=== PATIENT | male | born 1975 | race Caucasian/White ===

== ENCOUNTER 2021-01-23 13:44 | Emergency (ER) | payer OTHER, SELFPAY ==
[2021-01-23 14:04] VITALS: BP 126/76; PULSE 114; RESP 18; TEMP 37.6; O2SAT 100
--- NOTE | 2021-01-23 15:09 | ED.URI ---
HPI - URI/Sore Throat General Chief Complaint: Upper Respiratory Infection Stated Complaint: Flu sx Time Seen by Provider: 01/23/21 14:41 Source: patient and RN notes reviewed Mode of arrival: ambulatory Limitations: no limitations History of Present Illness HPI Narrative: Patient presents today complaining of an 8-day history of vomiting, fatigue, cough, rhinorrhea, insomnia. He has been taking DayQuil and NyQuil without relief. Denies shortness of breath or chest pain. Patient vapes. He has not been vaccinated against COVID-19. MD elicited complaint: cough Related Data Allergies Allergy/AdvReac Type Severity Reaction Status Date / Time provolone cheese Allergy Intermediate Hives Uncoded 01/23/21 14:46 seafood Allergy Intermediate hives Uncoded 01/23/21 14:46 Review of Systems Review of Systems: CONSTITUTIONAL: Denies body aches, fever, chills, or sweats.+ Fatigue, insomnia EYES: Denies visual changes, redness, or discharge. ENT: Denies congestion, sore throat, or otalgia.+ Rhinorrhea CARDIOVASCULAR: Denies chest pain, palpitations, or edema. RESPIRATORY: Denies dyspnea.+ Cough GASTROINTESTINAL: Denies abdominal pain, nausea, or diarrhea.+ Vomiting GENITOURINARY: Denies dysuria or hematuria. SKIN: Denies rash, itching, or wounds. MUSCULOSKELETAL: Denies back pain, joint pain, or myalgia. NEUROLOGIC: Denies headache, numbness, tingling, or weakness. PSYCH: Denies depression or anxiety. [facility] Past Medical History Medical History (Updated 01/23/21 @ 18:42 by Kristen Parr, [facility], ) Diabetes Exam Narrative: GENERAL: Mildly ill-appearing, well-nourished, and in no acute distress. HEAD: Normocephalic, atraumatic. EYES: EOMI. No redness or drainage. Conjunctivae normal. ENT: Mucous membranes pink and moist. Nares clear. No rhinorrhea. TMs normal bilaterally. Throat mildly erythematous without edema or exudate. Uvula midline. NECK: Normal AROM. Supple. No lymphadenopathy. CHEST: No respiratory distress. Clear to auscultation. HEART: Regular rate and rhythm. No murmur appreciated. Normal peripheral pulses. EXTREMITIES: Normal range of motion. No edema. SKIN: Warm, dry, no rash. Capillary refill normal. Normal skin turgor. NEURO: No focal deficits. Alert and oriented x3. Gait steady. PSYCH: Normal affect. No signs of depression or anxiety. Course Vital Signs Vital signs: Vital Signs Temperature 99.7 F H 01/23/21 14:04 Pulse Rate 114 H 01/23/21 14:04 Respiratory Rate 18 01/23/21 14:04 Blood Pressure 126/76 01/23/21 14:04 Pulse Oximetry 100 01/23/21 14:04 Temperature 99.7 F H 01/23/21 14:04 Pulse Rate 114 H 01/23/21 14:04 Respiratory Rate 18 01/23/21 14:04 Blood Pressure 126/76 01/23/21 14:04 Pulse Oximetry 100 01/23/21 14:04 Reviewed. Pt has been instructed to follow up with his PCP regarding his elevated blood pressure today. MDM - URI/Sore Throat Differential Diagnosis Differential diagnosis: Likely upper respiratory infection, sinusitis, viral infection, bronchitis and other (COVID-19) Lab Data Attestation: I reviewed the patient's lab results. Lab results narrative: Rapid COVID-19 test positive Labs: Lab Results 01/23/21 Range/Units 14:20 POC SARS CoV-2 Ag Positive (Negative) Critical Care Time Critical Care Time Critical Care Time: No Discharge Plan Discharge Clinical Impression: COVID-19 Patient Disposition: Home, Self-Care Condition: Stable Instructions: COVID-19 (Coronavirus Disease 2019) (ED) Additional Instructions: Your COVID-19 test is positive today. You need to quarantine for an additional 6 days. Everyone in your household also needs to be quarantining. Take Mucinex during the day to help keep the congestion in your chest clear. Drink plenty of fluids. Rest. Take Tylenol or ibuprofen for fever or pain. Go to the ER immediately with any chest pain, shortness of breath, or other concerning symptoms. Your bloo
== END 2021-01-23 15:00 | disposition home or self-care (01) ==
PROVIDERS: Emergency Provider Nurse Practitioner
DX: U07.1 COVID-19 (principal); E11.9 Type 2 diabetes mellitus without complications
CPT/HCPCS: 87426; 99203; C9803; G0463

== ENCOUNTER 2024-03-21 15:10 | Emergency (ER) | payer OTHER, SELFPAY ==
--- NOTE | ~2024-03-21 | XR_ITS ---
EXAMINATION: XR knee RT min 4V DATE: 03/21/2024 15:59 INDICATION: Posterior right knee pain. TECHNIQUE: 5 views of right knee were obtained. COMPARISON: None. FINDINGS: Alignment is normal. No fracture. There is mild osteoarthritis of medial and lateral compar tments. No knee joint effusion. IMPRESSION: 1. Mild right knee osteoarthritis. Reviewed, dictated and finalized at location A. RPILLAR TRACTOR OPERATOR
[2024-03-21 15:22] VITALS: BP 132/78; PULSE 87; RESP 16; TEMP 36.3; O2SAT 98
--- NOTE | 2024-03-21 15:45 | ED.LOWEXIN ---
HPI - Extremity Injury (Lower) General Chief Complaint: Extremity Injury, Lower Stated Complaint: right knee injury Time Seen by Provider: 03/21/24 15:30 Source: patient and RN notes reviewed Mode of arrival: ambulatory Limitations: no limitations History of Present Illness HPI Narrative: Patient presents today complaining of right knee pain x4 days. Patient has been cleaning his home and going up and down stairs frequently. He felt a pop in the posterior knee prior to onset of symptoms. He has been wearing a brace since that time taking ibuprofen with some mild relief. 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 Currently rates his pain 05/10. Related Data Allergies Allergy/AdvReac Type Severity Reaction Status Date / Time provolone cheese Allergy Intermediate Hives Uncoded 01/23/21 14:46 seafood Allergy Intermediate hives Uncoded 01/23/21 14:46 Review of Systems Review of Systems: CONSTITUTIONAL: Denies body aches, fever, chills, or sweats. EYES: Denies visual changes, redness, or discharge. ENT: Denies rhinorrhea, congestion, sore throat, or otalgia. CARDIOVASCULAR: Denies chest pain, palpitations, or edema. RESPIRATORY: Denies cough or dyspnea. GASTROINTESTINAL: Denies abdominal pain, nausea, vomiting, or diarrhea. GENITOURINARY: Denies dysuria or hematuria. SKIN: Denies rash, itching, or wounds. MUSCULOSKELETAL: Denies back pain or myalgia.+ right knee pain NEUROLOGIC: Denies headache, numbness, tingling, or weakness. PSYCH: Denies depression or anxiety. [facility] Past Medical History Medical History (Reviewed 03/21/24 @ 15:49 by Kristen Parr, [facility], ) Diabetes Comments At time of signature, I have reviewed and agree with nursing past medical, surgical, social and family history unless otherwise noted. Please see nursing chart for further information. There is no relevant family history pertinent to the presenting complaint Exam Narrative: GENERAL: Well-appearing, well-nourished, and in no acute distress. HEAD: Normocephalic, atraumatic. EYES: EOMI. No redness or drainage. Conjunctivae normal. ENT: Mucous membranes pink and moist. NECK: Normal AROM. CHEST: No respiratory distress. EXTREMITIES: Right knee: Tenderness to the posterior knee. No tenderness to the anterior knee or patella. No edema, ecchymosis, erythema, or effusion noted. Distal sensation intact. Capillary refill normal. Pedal pulse normal. Pain increases with passive internal rotation and flexion. SKIN: Warm, dry, no rash. Capillary refill normal. Normal skin turgor. NEURO: No focal deficits. Alert and oriented x3. Gait steady. PSYCH: Normal affect. No signs of depression or anxiety. Course Course Level of Care: Express Care Visit Vital Signs Vital signs: Vital Signs Temperature 97.3 F L 03/21/24 15:22 Pulse Rate 87 03/21/24 15:22 Respiratory Rate 16 03/21/24 15:22 Blood Pressure 132/78 03/21/24 15:22 Pulse Oximetry 98 03/21/24 15:22 Temperature 97.3 F L 03/21/24 15:22 Pulse Rate 87 03/21/24 15:22 Respiratory Rate 16 03/21/24 15:22 Blood Pressure 132/78 03/21/24 15:22 Pulse Oximetry 98 03/21/24 15:22 Reviewed MDM - Extremity Injury (Lower) MDM Narrative Medical decision making narrative: X-ray shows mild osteoarthritis. Recommend continuing ibuprofen and following up with orthopedics. Patient agrees with plan. Anticipatory guidance given. Differential Diagnosis Differential diagnosis: Likely other (Meniscus injury, ligamentous injury, effusion, osteoarthritis) Imaging Data Radiologist's impression: ITS Impressions Knee X-Ray 03/21/24 16:15 IMPRESSION: 1. Mild right knee osteoarthritis. Critical Care Time Critical Care Time Critical Care Time: No Discharge Plan Discharge Clinical Impression: Knee pain, right Qualifiers: Chronicity: unspecified Qualified Code(s): M25.561 - Pain in right knee Patient Disposition: Home, Self-Care Condition: Stable Instructions: Knee Pain (ED) Additional Instructions: Your knee x-ray showed some mild arthritis, but was otherwise normal. Please elevate and ice your knee. Continue ibuprofen if needed for pain. You may also continue your brace if this is helpful. Please call and schedule a follow-up visit with Orthopedics for further evaluation and treatment. Your blood pressure was elevated above 120/80 today at Urgent Care. This puts you above the threshold for follow up. Please schedule a followup visit with your personal physician as soon as possible, for further evaluation and treatment. Even blood pressure exceeding 120/80 may indicate pre-hypertension. Follow-up/Referrals: PHYSICIAN,CORRECTIVE THERAPIST [Primary Care Provider] - Ruddy York MD [Physician] - Time of Disposition: 16:25
== END 2024-03-21 16:51 | disposition home or self-care (01) ==
PROVIDERS: Emergency Provider Nurse Practitioner
DX: M25.561 Pain in right knee (principal); E11.9 Type 2 diabetes mellitus without complications
CPT/HCPCS: 73564; 99203; G0463

== ENCOUNTER 2025-01-29 17:26 | Emergency (ER) | payer OTHER, SELFPAY ==
--- OUTSIDE RECORDS SUMMARY | 2025-01-29 17:28 | XMS_ITS | Clinical Summary ---
Author Organization [facility] Address [address], [address] [address] Phone Care Team Providers Care Director Imaging Name Role Phone Unavailable Primary Care Provider Unavailabl e Allergies Active Allergy Reactions Criticality Noted Date Comments Shellfish Allergy Unknown Medications METFORMIN HCL PO Take by mouth. Active LISINOPRIL PO Take by mouth. Active LOVASTATIN PO Take by mouth. Active Glimepiride (AMARYL PO) Take by mouth. Active Active Problems Problem Noted Date Diagnosed Date Obesity KEVIN (obstructive sleep apnea) DM (diabetes mellitus) Overview (04/27/2015): Type 2 HTN (hypertension) Immunizations Immunization Administration Dates Next Due Influenza Vaccine 01/30/2012 TD VACCINE 05/01/2004 Social History Tobacco Use Types Packs/Day Years Used Date Smoking Tobacco: Never Assessed Sex and Gender Information Value Date Recorded Sex Assigned at Not on file Legal Sex Male 12:27 AM CDT Gender Identity Not on file Sexual Orientation Not on file Plan of Treatment Health Maintenance Due Date Last Done Comments Diabetes: Foot Exam 1973 Diabetes: Hemoglobin A1c 1973 Hepatitis C Virus (HCV) Screening 1973 TdaP Immunization 1973 Diabetes: Nephropathy Screening 1991 Hepatitis B Immunization (1 of 3 - 19+ 3-dose series) 1992 Pneumococcal Immunization (5 0+ years) (1 of 2 - PCV) 1992 Cologuard 2018 Colonoscopy 2018 Colorectal Cancer Screening 2018 Immunochemical Fecal Occult Blood 2018 Zoster Immunization (1 of 2) 2023 Diabetes: Eye Exam 06/13/2023 06/13/2022, 08/27/2009 Influenza Immunization (#1) 2024 01/30/2012 SARS-COV-2 Immunization ( season) 2024 Respiratory Syncytial Virus (RSV) Immunization (Adult) (1 - 1-dose 75+ series) 2048 DTaP/Tdap/Td Immunization Discontinued 05/01/2004 Human Papillomavirus (HPV) Immunization Aged Out No longer eligible based on patient's age to complete this topic Meningococcal Immunization (ACWY) Aged Out No longer eligible based on patient's age to complete this topic Rotavirus Immunization Aged Out No lo nger eligible based on patient's age to complete this topic Procedures Procedure Name Priority Date/Time Associated Diagnosis Comments DILATED EYE EXAM 06/13/2022 12:00 AM ORDNANCE EQUIPMENT WORKER from Last 3 Months or Most Recently Relevant to Health Maintenance Results * DILATED EYE EXAM (06/13/2022 12:00 AM ORDNANCE EQUIPMENT WORKER) 06/13/2022 us Provider Scan PROCEDURE/MINOR SURGICAL ORDERAB LES Final Result SCAN from Last 3 Months or Most Recently Relevant to Health Maintenance
--- OUTSIDE RECORDS SUMMARY | 2025-01-29 17:28 | XMS_ITS | Clinical Summary ---
Author Organization [facility] Address [address] [place] [address] Care Team Providers Care Monitor And Storage Bin Tender Name Role Phone No, Physician Primary Care Provider [phone] Allergies No known active allergies Medications cetirizine (ZyrTEC) 10 mg tablet Take 1 tablet (10 mg total) by mouth daily Take daily for the next 7 days and then after that as needed for allergies 30 tablet 3 Active EPINEPHrine (EpiPen) 0.3 mg/0.3 mL auto-injection syringeIndicati ons:Anaphylaxis Inject 0.3 mL (0.3 mg total) into the muscle as instructed as needed for anaphylaxis 2 each 3 Active Social History Tobacco Use Types Packs/Day Years Used Date Smoking Tobacco: Never Assessed Personal Safety Answer Date Recorded Have you ever been in or are you currently in a harmful physical or emotional relationship or is someone making you feel afraid or unsafe? 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 Gender Identity Not on file Sexual Orientation Not on file Obstetrics History Last Filed Vital Signs Vital Sign Reading Time Taken Comments Blood Pressure 113/63 09/22/2022 12:45 AM CDT Pulse 82 09/22/2022 12:45 AM CDT Temperature 36.3 C (97.3 F) 09/21/2022 11:06 PM CDT Respiratory Rate 18 09/22/2022 12:45 AM CDT Oxygen Saturation 93% 09/22/2022 12:45 AM CDT Inhaled Oxygen Concentration - - Weight 116.1 kg (256 lb) 09/21/2022 11:06 PM CDT Height 170.2 cm (5' 7) 09/21/2022 11:08 PM CDT Body Mass Index 40.1 09/21/2022 11:06 PM CDT Plan of Treatment Health Maintenance Due Date Last Done Comments Colon Cancer Screening-Colonoscopy 1973 Depression Screening 1973 Hepatitis C Screening 1973 Prostate Cancer Screening-PSA 1973 Hepatitis B Screening 1991 Regular Well Visit/Exam 18-64 1991 DTaP/Tdap/Td Vaccine (1 - Tdap) 05/02/2004 5 Zoster Vaccine (1 of 2) 2023 Influenza Vaccine (#1) 2024 01/30/2012 Pneumococcal vaccine <65 Aged Out No longer eligible based on patient's age to complete this topic Insurance [employer] Care Teams Monitor And Storage Bin Tender Relationship Specialty Start Date End Date No, Physician PCP - General 09/21/22
[2025-01-29 17:31] VITALS: BP 149/85; PULSE 90; RESP 16; TEMP 36.3; O2SAT 100
--- NOTE | 2025-01-29 17:52 | ED.EYEPROB ---
HPI - Eye Problem General Chief complaint: Eye Problems Stated complaint: left eye Time Seen by Provider: 01/29/25 17:40 Source: patient, RN notes reviewed and old records reviewed Mode of arrival: ambulatory Limitations: no limitations History of Present Illness HPI Narrative: 49year old male [facility] accompanied by family member with complaints of mowing yesterday at work and was wearing safety glasses and he felt something go into his left eye. He states that he thought it was some dirt or grass. He reports that he has washed his eye out and continues to have irritation and also some sensitivity to light. Patient reports no change in his vision has had watering of his left eye and redness. Patient admits that he had been rubbing his left eye. MD chief complaint: eye redness and other (photophobia) Onset (ago): day(s) (occurred yesterday at work) Onset description: sudden Location: left eye Place: street/outdoors Severity scale (1-10): 3 Treatments Prior to Arrival: irrigated eye Related Data Allergies Allergy/AdvReac Type Severity Reaction Status Date / Time shellfish derived Allergy Intermediate Hives Verified 01/29/25 17:42 tramadol AdvReac Intermediate Nausea Verified 01/29/25 17:42 Review of Systems Review of Systems: CONSTITUTIONAL: Denies fever, chills, or sweats. EYES: Denies visual changes. Reports redness,, irritation, tearing from left eye, photophobia.grass or dirt in eye yesterday while mowing ENT: Denies rhinorrhea, congestion, sore throat, or otalgia. CARDIOVASCULAR: Denies chest pain, palpitations, or edema. RESPIRATORY: Denies cough or dyspnea. SKIN: Denies rash or itching. NEUROLOGIC: Denies headache All systems reviewed & are unremarkable except as noted in HPI and below PMFSH Past Medical History Medical History (Updated 01/30/25 @ 12:47 by Althea Medley NP) Fracture of left lower leg Diabetes Surgical History Surgical History (Updated 01/30/25 @ 12:35 by Althea Medley NP) History of hernia surgery Social History Social History (Updated 01/30/25 @ 12:36 by Althea Medley NP) Smoking status: Current every day smoker Tobacco type: e-cigarettes/vaping Alcohol intake: current Alcohol use details: social Substance use type: does not use Living arrangements: with family Gender identity (if verbalized by the patient): Male Comments At time of signature, agree with nursing past medical, surgical, social and family history. There is no relevant family history pertinent to the presenting complaint Exam Narrative: GENERAL: Well-appearing, well-nourished, and in no acute distress. HEAD: Normocephalic, atraumatic. EYES: PERRLA and EOMI. Upper and lower eyelids unremarkable. No periorbital cellulitis noted. Sclera and conjunctivae injected left eye with photophobia, possible foreign body in eye yesterday thought grass or dirt, denie any visual changes see procedure note ENT: Nares clear, no rhinorrhea or epistaxis. Mucous membranes moist. NECK: Supple. no lymphadenopathy CHEST: Clear to auscultation. No respiratory distress.SAO2 100% on room air HEART: Regular rate and rhythm. No murmur heard. Normal peripheral pulses. SKIN: Warm, dry, no rash. NEURO: No focal deficits. Alert and oriented x3. Course Course Emergency Course: Patient is aware of diagnosis, understands and agrees to treatment plan. Anticipatory guidance given. Patient agrees to follow-up as directed and is aware of reasons to seek care at the emergency department. Portions of this record may have been created with voice recognition software Level of Care: Express Care Visit Vital Signs Vital signs: Vital Signs Temperature 36.3 C L 01/29/25 17:31 Pulse Rate 90 01/29/25 17:31 Respiratory Rate 16 01/29/25 17:31 Blood Pressure 149/85 H 01/29/25 17:31 Pulse Oximetry 100 01/29/25 17:31 Oxygen Delivery Room Air 01/29/25 17:31 Temperature 36.3 C L 01/29/25 17:31 Pulse Rate 90 01/29/25 17:31 Respiratory Rate 16 01/29/25 17:31 Blood Pressure 149/85 H 01/29/25 17:31 Pulse Oximetry 100 01/29/25 17:31 Oxygen Delivery Room Air 01/29/25 17:31 Reviewed Procedures FB Removal Eye Foreign Body #1: Foreign Body Removal Date: 01/29/25 Foreign Body Removal Time: 17:55 Time Out performed: Yes Location: eye (L) Topical anesthetic used: tetracaine (0.5% 2 drops) Foreign body: other (none observed) Evidence of corneal penetration: No Technique: irrigation, eye wash bottle, cotton tip swab and other (magnification) Procedure performed under: direct visualization with magnification and other (garcia lamp) Post-procedure medication: topical anesthetic (tetraciane 0.4% 2 drops comfort measure) Patient tolerated procedure: well Complications: other (none) Foreign Body Removal Narrative: left eye localized with Tetracaine 0.5% 2 drops and left eye irrigated well, used cotton tip swab under eyelid and over eye and examined with magnification with no foreign body noted. left eye stained with fluorescein dye and examined with Wods lamp with small abrasion not to cornea at 3o'clock. Left eye irrigated with sterile eye wash solution to remove stain and followed with 2 drops of tetraicaine 0.5% for comfort measure. Eye drop use reviewed. MDM - Eye Problem MDM Narrative Medical decision making narrative: Consideration of the following conditions may be warranted for the presenting problem, they are not final diagnoses: Bacterial conjunctivitis, allergic conjunctivitis, viral conjunctivitis, foreign body, blepharitis, chalazion, hordeolum, corneal abrasion.? Exam findings show no acute concerns or changes; patient is non-toxic appearing and is in no distress.? Patient is appropriate for outpatient treatment and follow-up. Differential Diagnosis Differential diagnosis: Likely corneal abrasion, conjunctivitis and other (left eye irritation with Photophobia) Critical Care Time Critical Care Time Critical Care Time: No Discharge Plan Discharge Clinical Impression: Abrasion of left cornea Qualifiers: Encounter type: initial encounter Qualified Code(s): S05.02XA - Injury of conjunctiva and corneal abrasion without foreign body, left eye, initial encounter Patient Disposition: Home Condition: Stable Instructions: Antibiotic Form, Corneal Abrasion (ED) Additional Instructions: Cold compresses to the eyes for comfort May need warm compresses to remove debris in the morning When cleaning the eyes used a washcloth in one direction then change washcloths or use a cotton ball in one direction and then his cotton balls Eyedrops as directed--may be more soothing if left in the refrigerator Do not share medicine--do not touch the eye with the medicine Tylenol or ibuprofen for pain per bottle instructions Avoid screen time--television, computer, tablet or phone. Also no reading or driving Follow-up with PCP or lime kiln and recausticizing operator as directed if no improvement in symptoms in 2 days If your symptoms persist, change or worsen significantly before you can contact your personal physician then please, without delay, go to the emergency department for further evaluation. Follow-up with PCP in 7-10 days or sooner if needed Follow up with PCP soon in regards to your blood pressure which is elevated above threshold for referral. Blood pressure above 120/80 may indicate pre-hypertension.149/85 Patient Language: Spanish Prescriptions: New ofloxacin 0.3 % drops See Rx Instructions .ROUTE .COMPLEX Qty: 10 0RF Rx Instructions: put 1-2 drps into affected eye(s) every 2-4 h x 2 days, then 1-2 drps 4 times/day days 3-7 Follow-up/Referrals: PHYSICIAN,TEMPORARY HELP AGENCY REFERRAL CLERK [Primary Care Provider, Internal Medicine] Stand Alone Forms: Work/School Release IP Time of Disposition: 18:10 Quality [place] Coma Scale Eyes: Open Verbal: Oriented and Alert Motor: Follows Commands [place] Coma Total Score: 15
[2025-01-29] MEDS: TETRACAINE HCL 0.5% OPHTH SOLN 4 ML BTL LEFT EYE (18:02)
[2025-01-29] MEDS: FLUORESCEIN SOD 1 MG/STRIP LEFT EYE (18:02)
[2025-01-29] MEDS: DACRIOSE EYE IRRIGATION 118 ML BOTTLE LEFT EYE (18:03)
== END 2025-01-29 18:15 | disposition home or self-care (01) ==
PROVIDERS: Emergency Provider Registered Nurse
DX: S05.02XA Injury of conjunctiva and corneal abrasion without foreign body, left eye, initial encounter (principal); X58.XXXA Exposure to other specified factors, initial encounter; Y93.H2 Activity, gardening and landscaping; Y99.0 Civilian activity done for income or pay; E11.9 Type 2 diabetes mellitus without complications; F17.290 Nicotine dependence, other tobacco product, uncomplicated
CPT/HCPCS: 99213; A9270; G0463